=== PATIENT | female | born 1965 | race Two or more races ===

== ENCOUNTER 2020-04-07 05:40 | Day surgery (SDC) | payer OTHER ==
[~2020-04-07 05:40] MED LIST: DOLOGESIC CAPLE1 TAB PO; LYRICA100 MG PO; MIRAPEX0.5 MG PO; NEXIUM20 MG/PACK PO; PROTONIX40 MG PO; TOPROL XL50 MG PO; XYZAL5 MG PO
[2020-04-07] MEDS ORDERED: NEURONTIN600 M1 PO (09:41)
[2020-04-07] MEDS ORDERED: PERCOCET 5-3251 EACH PO (09:41)
[2020-04-07] MEDS ORDERED: COLACE100 MG PO (09:42)
== END 2020-04-07 11:15 | disposition home or self-care (01) ==
LOC: CIR.AMB 05:40
PROVIDERS: ATTEND Surgery
DX: K43.0 Incisional hernia with obstruction, without gangrene (principal); Z20.828 Contact with and (suspected) exposure to other viral communicable diseases